=== PATIENT | male | born 1950 | race Caucasian/White ===

== ENCOUNTER 2016-06-03 12:26 | Outpatient (CLI) | payer MEDICARE, OTHER | END 2016-06-03 12:27 | LOC: CARD 12:26 | PROVIDERS: ATTEND Internal Medicine Cardiovascular Disease | DX: I25.10 Atherosclerotic heart disease of native coronary artery without angina pectoris (principal) | CPT/HCPCS: G0463 ==

== ENCOUNTER 2016-08-05 14:26 | Outpatient (CLI) | payer MEDICARE, OTHER | END 2016-08-05 14:27 | LOC: LABRHC 14:26 | PROVIDERS: ATTEND Physician Assistant | DX: M54.5 Low back pain (principal); R35.0 Frequency of micturition | CPT/HCPCS: 87086 ==

== ENCOUNTER 2017-02-03 11:50 | Outpatient (CLI) | payer MEDICARE, OTHER | END 2017-02-03 11:52 | LOC: CARD 11:50 | PROVIDERS: ATTEND Internal Medicine Cardiovascular Disease | DX: I25.10 Atherosclerotic heart disease of native coronary artery without angina pectoris (principal); R07.9 Chest pain, unspecified; I44.1 Atrioventricular block, second degree; I65.29 Occlusion and stenosis of unspecified carotid artery; I10 Essential (primary) hypertension; E78.5 Hyperlipidemia, unspecified; Z86.79 Personal history of other diseases of the circulatory system | CPT/HCPCS: G0463 ==

== ENCOUNTER 2017-04-21 12:45 | Outpatient (CLI) | payer MEDICARE, OTHER | END 2017-04-21 12:46 | LOC: CARD 12:45 | PROVIDERS: ATTEND Internal Medicine Cardiovascular Disease | DX: I25.10 Atherosclerotic heart disease of native coronary artery without angina pectoris (principal); I44.1 Atrioventricular block, second degree; I73.9 Peripheral vascular disease, unspecified; I10 Essential (primary) hypertension; E78.5 Hyperlipidemia, unspecified; Z72.0 Tobacco use | CPT/HCPCS: G0463 ==

== ENCOUNTER 2018-01-15 11:21 | Outpatient (CLI) | payer MEDICARE, OTHER ==
--- NOTE | 2018-01-15 20:19 | Diagnostic Imaging Report ---
ABBEY HE [facility] [address] [facility] [address] [id number] Report Submission Date: Jan 15, 2018 11:55:04 AM CDT Patient Study Name: LEO KENNEY Date: Jan 15, 2018 11:23:49 AM CDT Modality Type: DX Gender: M Description: SPINE : 50 Institution: [facility] Physician: ABBEY HE Examination: Plain film lumbar spine History: CHRONIC LBP, PT STATES HIS FATHER HAD MULTIPLE MYELOMA THAT BEGAN IN HIS LB. (Hx) Findings: 3 views of the lumbar spine demonstrates osteopenia. Degenerative spurring and wedging. Facet degenerative. Curvature to the right. Atherosclerotic disease involving the abdominal aorta. Impression: Degenerative changes. If suspect osseous lesion, further evaluation with CT or MRI could be performed to better evaluate. Electronically signed on Jan 15, 2018 11:55:04 AM CDT by: Kevyn GARCIA
== END 2018-01-15 11:23 ==
LOC: RAD 11:21
PROVIDERS: ATTEND Family Medicine
DX: M54.5 Low back pain (principal)
CPT/HCPCS: 72100

== ENCOUNTER 2018-06-14 16:40 | Outpatient (CLI) | payer MEDICARE, OTHER ==
--- NOTE | 2018-06-14 17:40 | Diagnostic Imaging Report ---
ABBEY HE [facility] [address] [facility] [address] [place] [address]. [id number] Report Submission Date: Jun 14, 2018 5:14:24 PM CDT Patient Study Name: LEO KENNEY Date: Jun 14, 2018 4:43:29 PM CDT Modality Type: DX Gender: M Description: ABD COMPLETE : 50 Institution: [facility] Physician: ABBEY HE Exam: Abdominal obstruction series. History: Lower abdominal pain and bloating. Supine and upright views of the abdomen are submitted. Scattered loops of bowel gas in both large and small intestine is noted with a moderate amount of retained fecal material seen in the colon. Some air-fluid levels in the left upper quadrant of the abdomen are noted. No free intraperitoneal air is identified. Surgical clips in the right upper quadrant indicate previous cholecystectomy. No organomegaly is identified. Impression: Mild ileus. Follow-up is recommended. No free air is identified. Electronically signed on Jun 14, 2018 5:14:24 PM CDT by: Robby GARCIA
== END 2018-06-14 16:42 ==
LOC: RAD 16:40
PROVIDERS: ATTEND Family Medicine
DX: K59.01 Slow transit constipation (principal); K56.7 Ileus, unspecified
CPT/HCPCS: 74019